=== PATIENT | male | born 1975 | race Hispanic/Latino ===

== ENCOUNTER 2023-05-11 20:51 | Emergency (ER) | payer SELFPAY ==
[2023-05-11] MEDS ORDERED: Lidocaine 1% (PF) 30 ML VIAL ONE (21:09)
[2023-05-11] MEDS ORDERED: Boostrix 0.5 ML (Tdap) VIAL (>/=7 yrs of age) ONE ×2 (21:09→21:14)
[2023-05-11] MEDS ORDERED: Cephalexin 250 MG CAP ONE ×2 (21:53→21:56)
[2023-05-11] MEDS ORDERED: Bacitracin 1 PK ONE (21:53)
== END 2023-05-11 22:35 | disposition home or self-care (01) ==
LOC: NAV ERS 20:51
DX: S61.211A Laceration without foreign body of left index finger without damage to nail, initial encounter (principal); R42 Dizziness and giddiness; Z23 Encounter for immunization; W31.2XXA Contact with powered woodworking and forming machines, initial encounter
CPT/HCPCS: 12002; 90471; 90715; 93005; J2001